=== PATIENT | female | born 1990 | race Caucasian/White ===

== ENCOUNTER → 2019-11-12 | Outpatient (CLI) | payer OTHER ==
[2019-11-12 10:04] LABS: PLATELET COUNT 212 x10^3/uL (130-400)
== END | disposition home or self-care (01) ==
LOC: LAB 08:59
PROVIDERS: ATTEND Obstetrics & Gynecology
DX: Z34.02 Encounter for supervision of normal first pregnancy, second trimester (principal); Z3A.00 Weeks of gestation of pregnancy not specified
CPT/HCPCS: 36415; 82950; 85014; 85018; 85049; 86592

== ENCOUNTER → 2019-12-15 | Outpatient (CLI) | payer OTHER | END | disposition home or self-care (01) | LOC: LAB 11:30 | PROVIDERS: ATTEND Obstetrics & Gynecology | DX: Z34.02 Encounter for supervision of normal first pregnancy, second trimester (principal); Z3A.00 Weeks of gestation of pregnancy not specified | CPT/HCPCS: 36415; 86803 ==

== ENCOUNTER → 2020-02-22 | Outpatient (CLI) | payer OTHER | END | disposition home or self-care (01) | LOC: STAR 12:00 | PROVIDERS: ATTEND Obstetrics & Gynecology | DX: Z01.812 Encounter for preprocedural laboratory examination (principal); Z20.828 Contact with and (suspected) exposure to other viral communicable diseases | CPT/HCPCS: 36415; 87635 ==

== ENCOUNTER 2020-03-03 00:06 | Inpatient (IN) | payer OTHER ==
[~2020-03-03] VITALS: Ht 165.1 cm; Wt 79.0 kg
[2020-03-03] MEDS ORDERED: NEWBORN KIT ONE ×2 (01:24→01:50)
[2020-03-03] MEDS ORDERED: OXYTOCIN 30U/ 0.9% NaCL 500ML 500 ML ONE (01:25)
[2020-03-03] MEDS ORDERED: MISOPROSTOL 200 MCG TABLET ONE (01:28)
[2020-03-03] MEDS ORDERED: TERBUTALINE 1 MG/ML, 1ML IVPush PRN (02:00)
[2020-03-03] MEDS ORDERED: D5%-LACTATED RINGERS 1,000 ML IV SCH (02:00)
[2020-03-03] MEDS ORDERED: FENTANYL PF 100 MCG/2ML IV PRN ×3 (02:00→21:00)
[2020-03-03] MEDS ORDERED: OXYTOCIN 30U/ 0.9% NaCL 500ML 500 ML IV PRN (02:00)
[2020-03-03] MEDS ORDERED: ONDANSETRON 2MG/ML, 2ML IVPush PRN ×3 (02:00→21:00)
[2020-03-03] MEDS ORDERED: OXYTOCIN 30U/ 0.9% NaCL 500ML 500 ML IV ONE (02:00)
[2020-03-03] MEDS ORDERED: SODIUM CHLORIDE FLUSH 10ML SYR IVF PRN (02:00)
[2020-03-03] MEDS ORDERED: CALCIUM CARBONATE 500 MG TAB.CHEW PO PRN ×2 (02:00→21:00)
[2020-03-03] MEDS ORDERED: TERBUTALINE 1 MG/ML, 1ML SQ PRN (02:00)
[2020-03-03] MEDS ORDERED: FENTANYL PF 100 MCG/2ML IVPush PRN (02:00)
[2020-03-03 02:15] LABS: BASOPHILS % (AUTO) 1 % (0-1); EOSINOPHILS % (AUTO) 1 % (1-7); LYMPHOCYTES % (AUTO) 23 % (22-44); MEAN CORPUSCULAR HEMOGLOBIN 31.3 pg (27.0-34.8); MEAN CORPUSCULAR HGB CONC 33.8 g/dL (32.4-35.8); MEAN PLATELET VOLUME 9.6 fL (7.4-10.4); MONOCYTES % (AUTO) 8 % (2-9); NEUTROPHILS % (AUTO) 67 % (42-75); PLATELET COUNT 175 x10^3/uL (130-400); RED BLOOD COUNT 3.96 x10^6/uL (3.82-5.3)
[2020-03-03 02:17] LABS: MD NO
[2020-03-03] MEDS ORDERED: PREN1TAB60 PO (04:18)
[2020-03-03] MEDS ORDERED: VALA500T4 PO (04:20)
[2020-03-03] MEDS ORDERED: IRON1TAB60 PO (04:23)
[2020-03-03] MEDS ORDERED: TERBUTALINE 1 MG/ML, 1ML ONE (05:05)
[2020-03-03] MEDS: LACTATED RINGERS 1,000 ML IV SCH ×5 (05:16→22:00)
[2020-03-03] MEDS ORDERED: FENTANYL/BUPIV./NS/PF 250 ML EPIDCONT ONE (09:21)
[2020-03-03] MEDS ORDERED: BUPIVACAINE 0.25% ONE (09:21)
[2020-03-03] MEDS ORDERED: LACTATED RINGERS 1,000 ML IV SCH (09:30)
[2020-03-03] MEDS ORDERED: FENTANYL/BUPIV./NS/PF 250 ML EPIDCONT SCH (09:30)
[2020-03-03] MEDS ORDERED: EPHEDRINE 50 MG/ML, 1ML IVPush PRN ×3 (09:30→21:00)
[2020-03-03] MEDS ORDERED: NALOXONE 0.4 MG/ML, 1ML IVPush PRN (09:30)
[2020-03-03] MEDS: LACTATED RINGERS 1,000 ML IVBOLUS PRN ×3 (10:35→19:00)
[2020-03-03] MEDS ORDERED: ONDANSETRON 2MG/ML, 2ML ONE ×2 (16:43→19:02)
[2020-03-03] MEDS ORDERED: METOCLOPRAMIDE 5 MG/ML, 2ML ONE (18:54)
[2020-03-03] MEDS ORDERED: HYDROcodone/APAP 7.5-325MG/15ML UDC PO PRN ×2 (19:00→21:00)
[2020-03-03] MEDS ORDERED: MIDAZOLAM 1 MG/ML, 2ML IV PRN ×2 (19:00→21:00)
[2020-03-03] MEDS ORDERED: METOPROLOL 1 MG/ML, 5ML IV PRN (19:00)
[2020-03-03] MEDS ORDERED: AZITHROMYCIN 500 MG in SODIUM CHLORIDE 0.9% 250 ML IV ONE (19:00)
[2020-03-03] MEDS ORDERED: ALBUTEROL SULFATE 2.5 MG/3 ML NPPB PRN ×2 (19:00→21:00)
[2020-03-03] MEDS ORDERED: LABETALOL 5MG/ML, 20ML IV PRN ×2 (19:00→21:00)
[2020-03-03] MEDS ORDERED: SODIUM CITRATE/CITRIC ACID 30 ML UDC PO ONE (19:00)
[2020-03-03] MEDS ORDERED: PROMETHAZINE 25 MG/ML, 1ML IV PRN (19:00)
[2020-03-03] MEDS ORDERED: hydrALAzine 20 MG/ML, 1ML IV PRN ×2 (19:00→21:00)
[2020-03-03] MEDS ORDERED: MEPERIDINE/PF 25MG/0.5ML IVPush PRN ×2 (19:00→21:00)
[2020-03-03] MEDS ORDERED: HYDROmorphone 2 MG/ML, 1ML IVPush PRN (19:00)
[2020-03-03] MEDS ORDERED: METOCLOPRAMIDE 5 MG/ML, 2ML IV ONE (19:00)
[2020-03-03] MEDS ORDERED: OXYcodone 5 MG/5 ML ORAL.SOL UDC PO PRN ×2 (19:00→21:00)
[2020-03-03] MEDS ORDERED: PROPOFOL 10 MG/ML, 20ML ONE (19:01)
[2020-03-03] MEDS ORDERED: OXYTOCIN 10 UNITS/ML, 1ML ONE (19:01)
[2020-03-03] MEDS ORDERED: KETOROLAC 30 MG/1 ML ONE (19:01)
[2020-03-03] MEDS ORDERED: EPHEDRINE 50 MG/ML, 1ML ONE (19:01)
[2020-03-03] MEDS ORDERED: DEXAMETHASONE 4 MG/ML, 1ML ONE (19:01)
[2020-03-03] MEDS ORDERED: CEFAZOLIN 1,000 MG ONE (19:01)
[2020-03-03] MEDS ORDERED: PHENYLEPHRINE 10 MG/ML ONE (19:02)
[2020-03-03] MEDS ORDERED: SUCCINYLCHOLINE 20 MG/ML, 10ML ONE (19:02)
[2020-03-03] MEDS ORDERED: FENTANYL PF 100 MCG/2ML ONE ×2 (19:06)
[2020-03-03] MEDS ORDERED: KETAMINE 10 MG/ML, 20ML ONE (19:47)
[2020-03-03] MEDS ORDERED: morphine SULFATE/PF 0.5 MG/ML, 10ML ONE (20:02)
[2020-03-03] MEDS ORDERED: MIDAZOLAM 1 MG/ML, 2ML ONE (20:18)
[2020-03-03] MEDS ORDERED: CARBOPROST TROMETHAMINE 250 MCG/ML, 1ML IM PRN (21:00)
[2020-03-03] MEDS ORDERED: MISOPROSTOL 200 MCG TABLET PR PRN (21:00)
[2020-03-03] MEDS ORDERED: MORPHINE SULFATE 4 MG/ML, 1ML IVPush PRN (21:00)
[2020-03-03] MEDS ORDERED: PROMETHAZINE 25 MG/ML, 1ML IVPush PRN (21:00)
[2020-03-03] MEDS: OXYTOCIN 30U/ 0.9% NaCL 500ML 500 ML IV SCH (21:00)
[2020-03-03] MEDS ORDERED: METHYLERGONOVINE 0.2 MG/ML IM PRN (21:00)
[2020-03-03] MEDS ORDERED: ACETAMINOPHEN 325 MG TABLET PO PRN (21:00)
[2020-03-03] MEDS ORDERED: morphine SULFATE 10 MG/ML, 1ML IVPush PRN (21:00)
[2020-03-03] MEDS ORDERED: ONDANSETRON 2MG/ML, 2ML IV PRN (21:00)
[2020-03-03] MEDS ORDERED: OXYcodone 5 MG/5 ML ORAL.SOL UDC ONE (21:26)
[2020-03-03 23:10] VITALS: BP 99/65
[2020-03-04] MEDS: LACTATED RINGERS 1,000 ML IV SCH ×8 (02:00→21:00)
[2020-03-04 04:20] VITALS: BP 92/54
[2020-03-04 06:15] LABS: MEAN CORPUSCULAR HEMOGLOBIN 30.9 pg (27.0-34.8); MEAN PLATELET VOLUME 10.1 fL (7.4-10.4); PLATELET COUNT 178 x10^3/uL (130-400); RED BLOOD COUNT 3.12 x10^6/uL (3.82-5.3); RED CELL DISTRIBUTION WIDTH 14.1 % (9.6-15.2)
[2020-03-04] MEDS: OXYTOCIN 30U/ 0.9% NaCL 500ML 500 ML IV SCH ×2 (07:00→17:00)
[2020-03-04 07:25] VITALS: BP 85/47
[2020-03-04 07:40] LABS: MD YES
[2020-03-04 07:45] LABS: LYMPH#(MANUAL) 1.52 x10^3/uL (1-3.4); LYMPHS% (MANUAL) 7 % (22-44); MONOS#(MANUAL) 0.43 x10^3/uL (0.3-2.7); MONOS% (MANUAL) 2 % (2-9)
[2020-03-04 07:46] LABS: <PLATELET ESTIMATE> ADEQUATE; <PLT MORPHOLOGY> NORMAL PLT MORPH; <RBC MORPHOLOGY> NORMAL; BAND#(MANUAL) 2.17 x10^3/uL; BANDS%(MANUAL) 10 % (0-7); SEGS% (MANUAL) 81 % (42-75)
[2020-03-04] MEDS: IBUPROFEN 600 MG TABLET PO PRN ×2 (08:13→16:48)
[2020-03-04] MEDS: DOCUSATE 100 MG CAPSULE PO PRN ×2 (08:13→21:03)
[2020-03-04] MEDS: PRENATAL VIT/IRON/FA 1 EACH TABLET PO SCH (08:13)
[2020-03-04] MEDS: OXYcodone/APAP 5/325MG TABLET PO PRN ×4 (08:15→21:03)
[2020-03-04 14:15] VITALS: BP 88/56
[2020-03-04] MEDS: FERROUS SULFATE 325 MG TABLET PO SCH (16:48)
[2020-03-04 20:06] VITALS: BP 111/61
[2020-03-04] MEDS: SIMETHICONE 80 MG CHEW TAB PO PRN (21:03)
[2020-03-05] MEDS: SIMETHICONE 80 MG CHEW TAB PO PRN ×2 (02:24→08:21)
[2020-03-05] MEDS: IBUPROFEN 600 MG TABLET PO PRN (02:24)
[2020-03-05] MEDS: OXYcodone/APAP 5/325MG TABLET PO PRN ×2 (02:24→08:21)
[2020-03-05] MEDS ORDERED: IBUP-1222 PO (07:04)
[2020-03-05] MEDS ORDERED: OXYC-302 PO (07:05)
[2020-03-05 08:10] VITALS: BP 101/65
[2020-03-05] MEDS: DOCUSATE 100 MG CAPSULE PO PRN (08:19)
[2020-03-05] MEDS: FERROUS SULFATE 325 MG TABLET PO SCH (08:19)
[2020-03-05] MEDS: PRENATAL VIT/IRON/FA 1 EACH TABLET PO SCH (08:19)
== END 2020-03-05 14:06 | disposition home or self-care (01) | DRG 788 ==
LOC: LDOP 00:06 → LDIP 01:41 → 2NW 22:56
PROVIDERS: ADMIT Obstetrics & Gynecology; ATTEND Obstetrics & Gynecology
PROC: 10D00Z1 Extraction of Products of Conception, Low, Open Approach (ICD-10-PCS; principal; 2020-03-03)
DX: O69.1XX0 Labor and delivery complicated by cord around neck, with compression, not applicable or unspecified (principal); O69.82X0 Labor and delivery complicated by other cord entanglement, without compression, not applicable or unspecified; O77.0 Labor and delivery complicated by meconium in amniotic fluid; O62.0 Primary inadequate contractions; O62.2 Other uterine inertia; O99.824 Streptococcus B carrier state complicating childbirth; Z3A.40 40 weeks gestation of pregnancy; Z37.0 Single live birth
CPT/HCPCS: 36415; 84112; 85025; 86592; 86850; 86900; G0378; J0456; J0690; J1100; J1885; J2250; J2274; J2405; J2704; J3010; J0330; J2370; J2590; J2765; J7050; J7120

== ENCOUNTER → 2020-12-14 | Outpatient (CLI) | payer OTHER ==
[~2020-12-14] MED LIST: IBUP-1222 PO; IRON1TAB60 PO; OXYC1TAB14 PO; PREN1TAB60 PO; VALA500T4 PO
[2020-12-14 17:18] LABS: MICROSCOPIC AUTO
== END | disposition home or self-care (01) ==
LOC: LAB 16:05
PROVIDERS: ATTEND Obstetrics & Gynecology
DX: R30.0 Dysuria (principal)
CPT/HCPCS: 81001; 87077; 87086; 87186

== ENCOUNTER → 2020-12-30 | Outpatient (CLI) | payer OTHER ==
[2020-12-30 16:17] LABS: MICROSCOPIC NOT IND
== END | disposition home or self-care (01) ==
LOC: LAB 15:29
PROVIDERS: ATTEND Obstetrics & Gynecology
DX: R39.9 Unspecified symptoms and signs involving the genitourinary system (principal)
CPT/HCPCS: 81003; 87086